=== PATIENT | female | born 2000 | race African-American/Black ===

== ENCOUNTER 2020-04-25 17:23 | Emergency (ER) | payer BC ==
[~2020-04-25] VITALS: Ht 167.6 cm; Wt 62.6 kg
[2020-04-25] MEDS ORDERED: Ketorolac 30mg Inj IV ONE (17:45)
--- NOTE | 2020-04-25 17:53 | Emergency Room Report ---
History of Present Illness General Chief Complaint: Abdominal Pain Source: Patient Present Illness HPI Patient is a 19-year-old female denies any significant past medical history who presents to the ER complaining of abdominal pain. Patient states that she has had some right-sided abdominal pain for a while but that it has gotten significantly worse over the past 2 to 3 days. Patient states that she had non bloody diarrhea 2 days ago and yesterday but that it resolved today. She states that she had a fever earlier today but cannot tell me how high it was. She also complains of chills. She denies any dysuria or hematuria. She denies any nausea or vomiting. Patient states that she went to an urgent care prior to coming here and that they told her she needed a CAT scan which they could not do there. Patient states that she did not take any medications today for the pain. Allergies: Coded Allergies: No Known Allergies (Unverified , 04/25/20) COVID-19 Screening Contact w/high risk pt: No Experienced COVID-19 symptoms?: No COVID-19 Testing performed PRESENTATION SPECIALIST: Yes - 3 weeks ago COVID-19 Screening: Negative COVID-19 COVID-19 Testing Source: urgent care Patient History Last Menstrual Period: 04/19/20 Now: No Reviewed Nursing Documentation: PMH: Agreed; PSxH: Agreed Nursing Documentation-PMH Past Medical History: No Stated History Review of Systems All Other Systems: negative except mentioned in HPI Physical Exam Vital Signs Date Time Temp Pulse Resp B/P (MAP) Pulse Ox O2 Delivery O2 Flow Rate FiO2 04/25/20 17:26 99.0 92 19 122/65 (84) 97 Room Air Sp02 EP Interpretation: reviewed, normal General Appearance: no apparent distress, alert, GCS 15, non-toxic Head: normocephalic, atraumatic Eyes: bilateral eye normal inspection, bilateral eye PERRL ENT: hearing grossly normal, normal pharynx, no angioedema, normal voice Neck: full range of motion, supple/symm/no masses Respiratory: chest non-tender, lungs clear, normal breath sounds, speaking full sentences Cardiovascular #1: regular rate, rhythm, no edema Gastrointestinal: other - Right periumbilical, right lower quadrant and right upper quadrant mild tenderness palpation with no guarding or rebound Rectal: deferred Genitourinary: CVA tenderness (R) Musculoskeletal: normal range of motion Neurologic: care management associate III-XII nml as tested, oriented x3 Psychiatric: no suicidal/homicidal ideation Skin: no rash Lymphatic: no adenopathy Medical Decision Making Diagnostic Impression: Primary Impression: Abdominal pain Additional Impression: Hypokalemia ER Course Patient's labs demonstrate mild hypokalemia with potassium of 3.3. Patient given 40 mEq of oral potassium chloride. Patient also given IV fluids and IV Toradol which resolved her pain. Patient's labs demonstrate no elevated white blood cell count. Patient is afebrile. Patient CT demonstrates no acute abdominal or pelvic pathology. Patient advised to follow-up with GI. After discussing risks and benefits of further diagnostics, treatment plans, as well as indications for and risks of admission, the patient is agreeable to being d ischarged home. I have explained that their evaluation and treatment in the emergency department today is an important step towards them achieving better health but that their evaluation today is not intended to replace further evaluation and treatment by a physician in their local clinic. I have explained that while the current findings suggest no immediate life threatening emergency they will require further evaluation and treatment by a physician of their choice in their area. They understand that it will be necessary for them to review the final reports of their ED visit with their clinic physician. We have reviewed indications for return to the Emergency Department. I have explained that additional time may need to pass and/or additional testing as an outpatient may be necessary before a definitive diagnosis can be made. They tell me they are willing to follow up as instructed within the timeframe I recommend. They appear to understand what we discussed. Additionally they understand that if they are unable to be seen by an outpatient physician they are welcome, and in fact should, return to the Emergency Department for a repeat evaluation. The patient is stable at time of discharge. Last Vital Signs Date Time Temp Pulse Resp B/P (MAP) Pulse Ox O2 Delivery O2 Flow Rate FiO2 04/25/20 17:26 99.0 92 19 122/65 (84) 97 Room Air Disposition: HOME, SELF-CARE Condition: Stable Scripts Ibuprofen* (MOTRIN*) 600 Mg Tablet 600 MG ORAL Q6H PRN for FOR PAIN, #20 TAB 0 Refills Prov: Akilah Buchanan M.D. 04/25/20 Additional Instructions: The patient was provided with discharge instructions, notified to follow-up with a primary care doctor and or specialist in the next 24-48 hours, and to return to the ED if they have worsening of their symptoms. Please note that this report is being documented using [employer] technology. This can lead to erroneous entry secondary to incorrect interpretation by the dictating instrument. Akilah Buchanan M.D. Apr 25, 2020 17:53
--- NOTE | 2020-04-25 17:53 | NUR ---
ED Nurse Note: Pt walked in to ED right lower abdomen radiating to lower back pain for couple months. Denies n/v/d. nad noted, vss.
--- NOTE | 2020-04-25 17:53 | NUR ---
ED Nurse Note: iv inserted on left ac 20 gauge, blood sent to lab.
[2020-04-25 17:54] VITALS: BP 122/65
[2020-04-25 18:22] LABS: BASOPHILS % (AUTO) 1.3 % (0.0-2.0); EOSINOPHILS % (AUTO) 0.2 % (0.0-3.0); HEMATOCRIT 38.6 % (37.0-47.0); HEMOGLOBIN 12.9 G/DL (12.0-16.0); LYMPHOCYTES % (AUTO) 9.2 % (20.0-45.0); MEAN CORPUSCULAR VOLUME 88 FL (80-99); NEUTROPHILS % (AUTO) 78.4 % (45.0-75.0); PLATELET COUNT 267 K/UL (150-450); RED BLOOD COUNT 4.37 M/UL (4.20-5.40); RED CELL DISTRIBUTION WIDTH 14.1 % (11.6-14.8); WHITE BLOOD COUNT 6.3 K/UL (4.8-10.8)
[2020-04-25 18:27] LABS: APPEARANCE,URINE SLIGHTLY CLOUDY; BILIRUBIN, URINE NEGATIVE (NEGATIVE); GLUCOSE, URINE (UA) NEGATIVE (NEGATIVE); KETONES,URINE 2+ (NEGATIVE); LEUKOCYTE ESTERASE ,URINE NEGATIVE (NEGATIVE); NITRITE,URINE NEGATIVE (NEGATIVE); PH,URINE 6.5 (4.5-8.0); PROTEIN,URINE 2+ (NEGATIVE); UROBILINOGEN,URINE 1 MG/DL (0.0-1.0)
[2020-04-25 18:33] LABS: COLOR,URINE YELLOW
[2020-04-25 18:40] LABS: ANION GAP 9 mmol/L (5-15); BLOOD UREA NITROGEN 9 mg/dL (7-18); CALCIUM 8.7 MG/DL (8.5-10.1); CARBON DIOXIDE 27 MMOL/L (21-32); CHLORIDE 104 MMOL/L (98-107); POTASSIUM 3.3 MMOL/L (3.5-5.1); SODIUM 140 MMOL/L (136-145)
[2020-04-25 18:44] LABS: ALANINE AMINOTRANSFERASE 9 U/L (12-78); ALBUMIN 3.7 G/DL (3.4-5.0); ALBUMIN/GLOBULIN RATIO 0.9 (1.0-2.7); ALKALINE PHOSPHATASE 57 U/L (46-116); ASPARTATE AMINO TRANSFERASE 14 U/L (15-37); BILIRUBIN,TOTAL 0.2 MG/DL (0.2-1.0)
--- NOTE | 2020-04-25 18:46 | NUR ---
ED Nurse Note: pt off floor for ct scan.
--- NOTE | 2020-04-25 18:55 | NUR ---
ED Nurse Note: patient back on floor from ct scan.
--- NOTE | 2020-04-25 19:10 | Diagnostic Imaging Report ---
EXAM: CT Abdomen and Pelvis Without Intravenous Contrast CLINICAL HISTORY: ABD PAIN TECHNIQUE: Axial computed tomography images of the abdomen and pelvis without intravenous contrast. CTDI is 4 mGy and DLP is 206.1 mGy-cm. One or more of the following dose reduction techniques were used: automated exposure control, adjustment of the mA and/or kV according to patient size, use of iterative reconstruction technique. COMPARISON: No relevant prior studies available. FINDINGS: Lung bases: Unremarkable. ABDOMEN: Liver: Unremarkable Gallbladder and bile ducts: No calcified stones. No ductal dilation. Pancreas: Unremarkable. Spleen: Unremarkable. Adrenals: Unremarkable. Kidneys and ureters: No renal calculi or obstructive changes. Stomach and bowel: No marlon mural thickening. Nonobstructive bowel gas pattern. PELVIS: Appendix: No findings to suggest acute appendicitis. Bladder: Unremarkable. Reproductive: Unremarkable. Tampon ABDOMEN and PELVIS: Intraperitoneal space: Small amount of fluid in the pelvis Bones/joints: No acute fracture. Soft tissues: Unremarkable. Vasculature: Unremarkable. No abdominal aortic aneurysm. Lymph nodes: No enlarged lymph nodes. IMPRESSION: No acute findings in the abdomen or pelvis.
[2020-04-25] MEDS ORDERED: IBUPROFEN600 M1 ORAL (19:26)
[2020-04-25 19:35] VITALS: BP 122/65
--- NOTE | 2020-04-25 19:35 | NUR ---
ER DISCHARGE NOTE: Patient is cleared to be discharged per ERMD, pt is aox4, on room air, with stable vital signs. pt was given dc and prescription instructions, pt was able to verbalize understanding, pt id band and iv site removed without complications. pt is able to ambulate with steady gait. pt took all belongings.
== END 2020-04-25 19:35 | disposition home or self-care (01) ==
LOC: EMR 18:10
DX: R10.31 Right lower quadrant pain (principal); R10.11 Right upper quadrant pain; E87.6 Hypokalemia
CPT/HCPCS: 36415; 74176; 80053; 80307; 81003; 81025; 83690; 83735; 85025; 96361; 96374; 99284; J1885; J7030; J8499